=== PATIENT | male | born 1955 | race Caucasian/White ===

== ENCOUNTER → 2018-02-15 | Day surgery (SDC) | payer OTHER ==
[~2018-02-15] MED LIST: IV RINGERS,LACTATED 1000ML 1,000 ML IV; PROPOFOL 20 ML IV
[2018-02-15] MEDS: IV RINGERS,LACTATED 1000ML 1,000 ML IV (16:03)
== END | disposition home or self-care (01) ==
LOC: SURG 15:32
DX: K21.0 Gastro-esophageal reflux disease with esophagitis (principal); K29.50 Unspecified chronic gastritis without bleeding; I10 Essential (primary) hypertension; Z86.010 Personal history of colon polyps; Z79.82 Long term (current) use of aspirin; Z79.899 Other long term (current) drug therapy; Z98.890 Other specified postprocedural states
CPT/HCPCS: 43239; 88305; J2704